=== PATIENT | male | born 2005 | race Caucasian/White ===

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

== ENCOUNTER 2024-02-21 19:39 | Emergency (ER) | payer SELFPAY ==
[2024-02-21] MEDS ORDERED: IBUPROFEN 400 MG TAB ONE (20:05)
[2024-02-21] MEDS ORDERED: HYDROCODONE/APAP 5/325 MG TAB ONE (20:05)
[2024-02-21] MEDS ORDERED: TDAP (DIPHTH,PERTUSS(ACELL),TET VAC) 0.5 ML VIAL IMVAC ONE (20:05)
--- NOTE | 2024-02-21 21:17 | RAD REPORT ---
EXAM DESCRIPTION: RAD - Foot Left 3 View - 02/21/2024 9:04 pm CLINICAL HISTORY: puncture wound COMPARISON: No comparisons FINDINGS/IMPRESSION: No acute fracture. No malalignment. No significant focal degenerative changes. No radiopaque foreign body.
--- NOTE | 2024-02-21 21:20 | EDPHYS ---
Physician Documentation [facility] Name: Alireza Ramirez Age: 18 yrs Sex: Male : 2005 Arrival Date: 02/21/2024 Time: 19:39 Bed 10 Private MD: ED Physician Deven Tirado HPI: 02/20 20:05 This 18 yrs old Male presents to ER via Wheelchair with complaints of Puncture Wound To cp Foot. 20:05 The patient presents with pain, that is acute, a puncture wound, from a nail. The cp complaints affect the plantar side of left foot proximal to big toe. Context: resulted from the patient stepping on a nail, while wearing shoes, the patient can fully bear weight. Onset: The symptoms/episode began/occurred today. Historical: - Allergies: 19:50 No Known Allergies; tl4 - Home Meds: 19:50 None [Active]; tl4 - PMHx: 19:50 ADD/ADHD; tl4 - PSHx: 19:50 None; tl4 - Immunization history:: Last tetanus immunization: < 5 years ago. - Infectious Disease History:: Denies. - Social history:: Smoking status: Reported history of juuling and/or vaping. ROS: 20:10 Constitutional: Negative for body aches, chills, fever, poor PO intake, cp 20:10 Eyes: Negative for injury, pain, redness, and discharge, cp 20:10 Cardiovascular: Negative for chest pain, palpitations, 20:10 Respiratory: Negative for cough, shortness of breath, wheezing, 20:10 MS/extremity: Positive for pain, puncture, swelling, tenderness, of the plantar side of left foot, Negative for paresthesias, 20:10 Neuro: Negative for numbness, weakness, 20:10 All other systems are negative, Exam: 20:15 Constitutional: The patient appears in no acute distress, alert, awake, non-toxic, well cp developed, well nourished, uncomfortable, 20:15 Head/Face: Normocephalic, atraumatic. cp 20:15 Cardiovascular: Rate: normal, 20:15 Respiratory: the patient does not display signs of respiratory distress, Respirations: normal, no use of accessory muscles, no retractions, labored breathing, is not present, 20:15 Musculoskeletal/extremity: Extremities: noted in the left foot: small, deep puncture type wound noted proximal to first phalanx of big toe with mild swelling and mild erythema, no active bleeding and marked tenderness to touch, Perfusion: the extremity is normally perfused throughout, the left foot Sensation intact. 20:15 Neuro: Orientation: to person, place \T\ time. Mentation: is normal, Vital Signs: 19:47 BP 128 / 62; Pulse 86; Resp 16; Temp 98.7; Pulse Ox 100% ; Weight 65.77 kg; Height 6 tl4 ft. 2 in. ; Pain 10/10; 21:27 Pulse 72; Resp 16; Pulse Ox 100% on R/A; mb9 19:47 Body Mass Index 18.62 (65.77 kg, 187.96 cm) - Percentile 4.0 % tl4 19:47 Pain Scale: Adult tl4 MDM: 19:54 Patient medically screened. cp 21:15 Independent interpretation of the following test(s) in the Emergency Department X-Ray: cp My interpretation is images of left foot negative for fracture and negative for foreign body. 21:19 Data reviewed: vital signs, nurses notes, radiologic studies, plain films. cp 21:19 Differential diagnosis: fracture, open fracture, retained foreign body, cellulitis, cp abscess. I considered the following discharge prescriptions or medication management in the emergency department Medications were administered in the Emergency Department. See MAR. Counseling: I had a detailed discussion with the patient and/or guardian regarding the historical points, exam findings, and any diagnostic results supporting the discharge/admit diagnosis, radiology results, to return to the emergency department if symptoms worsen or persist or if there are any questions or concerns that arise at home. Response to treatment: the patient's symptoms have mildly improved after treatment. Special discussion: I discussed in detail with the patient the higher chance of wound infection based on his presenting history. 02/20 20:02 Order name: XRAY Foot LEFT 3 View; Complete Time: :18 cp 02/20 21:18 Interpretation: Reviewed report. cp Administered Medications: 20:08 Drug: Ibuprofen PO 800 mg PO once Route: PO; mb9 20:50 Follow up: Response: No adverse reaction mb9 20:08 Drug: HYDROcodone-acetaminophen PO 5 mg-325 mg 1 tabs PO once Route: PO; mb9 20:49 Follow up: Response: No adverse reaction mb9 20:08 Drug: Boostrix Tdap IM 0.5 ml IM once; as a single dose {Note: 04/13/26 KY27J mb9 [employer]hav[employer].} Route: IM; Site: right deltoid; 20:49 Follow up: Response: No adverse reaction mb9 Disposition: 22:22 Co-signature as Attending Physician, Deven Tirado MD I reviewed the patient's care rt provided by the Advanced Practice Provider and agree with the diagnosis and treatment plan. Disposition Summary: 02/21/24 21:19 Discharge Ordered Notes: Location: Home cp Problem: new cp Symptoms: have improved cp Condition: Stable cp Diagnosis - Puncture wound without foreign body of foot - left cp Followup: cp - With: Private Physician - When: 2 - 3 days - Reason: Worsening of condition Discharge Instructions: - Discharge Summary Sheet cp - Puncture Wound cp - Wound Care, Adult cp Forms: - Medication Reconciliation Form cp - Antibiotic Education cp - Prescription Opioid Use cp - Patient Portal Instructions cp - Leadership Thank You Letter cp Prescriptions: - Cipro 500 mg Oral Tablet - take 1 tablet ORAL route every 12 hours for 10 days; 20 tablet; Refills: 0, cp Product Selection Permitted - Diclofenac Sodium 75 mg Oral tablet, delayed release (enteric coated) - take 1 tablet ORAL route 2 times per day; 20 tablet; Refills: 0, Product cp Selection Permitted Signatures: Dispatcher [employer] Da Lema PA PA cp Wilkerson, Mary Beth RN RN mb9 Deven Tirado MD MD rt Jorge Luis Lam RN RN tl4
--- NOTE | 2024-02-21 21:20 | ER ---
Nurse's Notes [facility] Name: Alireza Ramirez Age: 18 yrs Sex: Male : 2005 Arrival Date: 02/21/2024 Time: 19:39 Bed 10 Private MD: Diagnosis: Puncture wound without foreign body of foot-left Presentation: 02/20 19:47 Chief complaint: Patient states: Pt states he stepped on a nail with his left foot tl4 approx 3 hours ago. Pt states tetanus is not up to date. Coronavirus screen: At this time, the client does not indicate any symptoms associated with coronavirus-19. Ebola Screen: No symptoms or risks identified at this time. Initial Sepsis Screen: Does the patient meet any 2 criteria? No. Patient's initial sepsis screen is negative. Does the patient have a suspected source of infection? No. Patient's initial sepsis screen is negative. Risk Assessment: Do you want to hurt yourself or someone else? Patient reports no desire to harm self or others. Onset of symptoms was February 21, 2024 at 16:30. 19:47 Method Of Arrival: Wheelchair tl4 19:47 Acuity: ESE 4 tl4 Triage Assessment: 19:51 General: Appears in no apparent distress. Behavior is calm, cooperative. Pain: tl4 Complains of pain in left foot. EENT: No signs and/or symptoms were reported regarding the EENT system. Neuro: Level of Consciousness is awake, alert, obeys commands, Oriented to person, place, time, situation. Cardiovascular: Capillary refill < 3 seconds Patient's skin is warm and dry. Respiratory: Airway is patent Respiratory effort is even, unlabored, Respiratory pattern is regular, symmetrical. GI: No signs and/or symptoms were reported involving the gastrointestinal system. : No signs and/or symptoms were reported regarding the genitourinary system. Derm: No signs and/or symptoms reported regarding the dermatologic system. Musculoskeletal: Reports pain in left foot. Injury Description: Puncture sustained to left foot. Historical: - Allergies: 19:50 No Known Allergies; tl4 - Home Meds: 19:50 None [Active]; tl4 - PMHx: 19:50 ADD/ADHD; tl4 - PSHx: 19:50 None; tl4 - Immunization history:: Last tetanus immunization: < 5 years ago. - Infectious Disease History:: Denies. - Social history:: Smoking status: Reported history of juuling and/or vaping. Screenin:53 [facility] ED Fall Risk Assessment (Adult) History of falling in the last 3 months, mb9 including since admission No falls in past 3 months (0 pts) Confusion or Disorientation No (0 pts) Intoxicated or Sedated No (0 pts) Impaired Gait No (0 pts) Mobility Assist Device Used No (0 pt) Altered Elimination No (0 pt) Score/Fall Risk Level 0 - 2 = Low Risk Oriented to surroundings, Maintained a safe environment, Educated pt \T\ family on fall prevention, incl call for assistance when getting out of bed. Abuse screen: Denies threats or abuse. Nutritional screening: No deficits noted. Tuberculosis screening: No symptoms or risk factors identified. Assessment: 19:54 General: Appears in no apparent distress. Behavior is calm, cooperative. Pain: mb9 Complains of pain in left foot Quality of pain is described as throbbing. Neuro: Level of Consciousness is awake, alert, obeys commands, Oriented to person, place, time, situation, Appropriate for age. Cardiovascular: Patient's skin is warm and dry. Respiratory: Airway is patent Respiratory effort is even, unlabored, Respiratory pattern is regular, symmetrical. GI: No signs and/or symptoms were reported involving the gastrointestinal system. : No signs and/or symptoms were reported regarding the genitourinary system. EENT: No signs and/or symptoms were reported regarding the EENT system. Derm: Skin is pink, warm \T\ dry. Musculoskeletal: Range of motion: intact in all extremities. 21:26 Reassessment: No changes from previously documented assessment. Patient and/or family mb9 updated on plan of care and expected duration. Pain level reassessed. Patient is alert, oriented x 3, equal unlabored respirations, skin warm/dry/pink. Vital Signs: 19:47 BP 128 / 62; Pulse 86; Resp 16; Temp 98.7; Pulse Ox 100% ; Weight 65.77 kg; Height 6 tl4 ft. 2 in. ; Pain 10/10; 21:27 Pulse 72; Resp 16; Pulse Ox 100% on R/A; mb9 19:47 Body Mass Index 18.62 (65.77 kg, 187.96 cm) - Percentile 4.0 % tl4 19:47 Pain Scale: Adult tl4 ED Course: 19:40 Patient arrived in ED. jj6 19:43 Da Padilla PA is PHCP. cp 19:43 Deven Tirado MD is Attending Physician. cp 19:50 Triage completed. tl4 19:52 Arm band placed on right wrist. tl4 19:53 Mirtha Rodriguez, RN is Primary Nurse. mb9 19:53 Placed in gown. Bed in low position. Call light in reach. Side rails up X 1. Provided mb9 Education on: press call light if needing anything. Client placed on continuous cardiac and pulse oximetry monitoring. NIBP monitoring applied. 21:06 XRAY Foot LEFT 3 View In Process Unspecified. EDMS 21:26 No provider procedures requiring assistance completed. Patient did not have IV access mb9 during this emergency room visit. Administered Medications: 20:08 Drug: Ibuprofen PO 800 mg PO once Route: PO; mb9 20:50 Follow up: Response: No adverse reaction mb9 20:08 Drug: HYDROcodone-acetaminophen PO 5 mg-325 mg 1 tabs PO once Route: PO; mb9 20:49 Follow up: Response: No adverse reaction mb9 20:08 Drug: Boostrix Tdap IM 0.5 ml IM once; as a single dose {Note: 04/13/26 KY27J [employer].} Route: IM; Site: right deltoid; 20:49 Follow up: Response: No adverse reaction mb9 Medication: 19:54 VIS not applicable for this client. mb9 Outcome: 21:19 Discharge ordered by . cp 21:26 Discharged to home ambulatory, with family, mb9 21:26 Condition: stable 21:26 Discharge instructions given to patient, Instructed on discharge instructions, follow up and referral plans. Demonstrated understanding of instructions, follow-up care, medications, Prescriptions given X 2, 21:27 Patient left the ED. mb9 Signatures: Dispatcher [employer] EDMS Da Padilla PA PA cp Jeffries, Jennifer jj6 Mirtha Rodriguez, RN RN mb9 Jorge Luis Lam RN RN tl4
[2024-02-25 14:51] VITALS: BP 128/62; TEMP 98.7; O2SAT 100
== END 2024-02-21 21:27 | disposition home or self-care (01) ==
LOC: ER 19:39
DX: S91.332A Puncture wound without foreign body, left foot, initial encounter (principal); W45.0XXA Nail entering through skin, initial encounter
CPT/HCPCS: 96372; 99284